=== PATIENT | female | born 1990 | race African-American/Black ===

== ENCOUNTER 2016-02-09 19:26 | Emergency (ER) | payer SELFPAY ==
[~2016-02-09] VITALS: Ht 165.1 cm; Wt 112.7 kg
[~2016-02-09 19:26] MED LIST: ACETAMINOPHEN500 MG PO; BACTRIM,SEPT1 TABLET PO; CEFDINIR300 MG PO; CITRATE OF MAG296 ML PO; COLACE100 MG PO; MOTRIN600 MG PO; NAPROSYN500 MG PO; NAPROXEN500 MG PO; NOHOMEMEDS; TRAMADOL HCL50 MG PO; ULTRACET1 TABLET PO
[2016-02-09 20:25] LABS: HEMATOCRIT 40.9 % (36.0-46.0); MCH 30.6 PG (29.0-34.0); MCHC 33.7 G/DL (30.0-36.0); MCV 90.7 FL (83-99); MEAN PLAT.VOLUME 11.6 uM^3 (9.5-12.4); PLATELET COUNT 231 K/uL (156-360); RBC DIS.WIDTH-CV 13.4 % (11.8-14.6); RBC DIS.WIDTH-SD 43.7 % (39-53); RED BLOOD COUNT 4.51 M/uL (3.80-5.20); WHITE BLOOD COUNT 9.4 K/uL (4.1-10.2)
[2016-02-09 20:53] LABS: CHLORIDE 104 mEq/L (99-109); POTASSIUM 3.7 mEq/L (3.7-5.4); SODIUM 137 mEq/L (136-147)
[2016-02-09 20:54] LABS: GLUCOSE 107 mg/dL (70-99)
[2016-02-09 20:56] LABS: ANION GAP 9 MEQ/L (2-14)
[2016-02-09 20:58] LABS: GFR ESTIMATE (CALCULATED) > 59 mL/min/
[2016-02-09 20:59] LABS: UREA NITROGEN (BUN) 13 mg/dL (9-23)
[2016-02-09 21:35] LABS: D-DIMER ELISA 0.26 mg/L FEU (< 0.57)
[2016-02-09 21:42] LABS: QUANTITATIVE HCG < 4.0 MIU/ML
[2016-02-09] MEDS ORDERED: MOTRIN600 MG PO (21:51)
[2016-02-09] MEDS ORDERED: SKELAXIN800 MG PO (21:51)
[2016-02-09 22:36] VITALS: BP 120/74
== END 2016-02-09 22:37 | disposition home or self-care (01) ==
LOC: EME 19:26 → EXP 19:26
DX: M62.838 Other muscle spasm (principal); R07.9 Chest pain, unspecified; F17.200 Nicotine dependence, unspecified, uncomplicated
CPT/HCPCS: 71020; 80048; 84702; 85027; 85379; 93005; 99281; 99284